=== PATIENT | male | born 1970 | race Caucasian/White ===

== ENCOUNTER 2023-02-24 17:13 | Emergency (ER) | payer OTHER ==
[~2023-02-24] VITALS: Ht 170.2 cm; Wt 80.0 kg
[2023-02-24] MEDS ORDERED: ONDANSETRON HCL 4MG/2ML INJ IV STA (17:26)
[2023-02-24] MEDS ORDERED: MORPHINE SULFATE 4 MG/ML CPJ (NOT FOR IM USE) IV STA (17:26)
[2023-02-24] MEDS ORDERED: LIDOCAINE HCL 1% 20ML VIAL (Pyxis) INJ INFIL ONE (17:30)
[2023-02-24] MEDS ORDERED: SODIUM CHLORIDE 0.9% 1,000 ML IV ONE (17:30)
[2023-02-24 17:46] VITALS: BP 126/90
[2023-02-24 18:03] LABS: BASOPHILS % 0.3 % (0.0-2.0); EOSINOPHILS % 1.1 % (0.0-5.0); HEMATOCRIT. 42.9 % (42.0-52.0); HEMOGLOBIN. 15.3 g/dL (14.0-18.0); LYMPHOCYTES % 20.1 % (20.0-50.0); MEAN CORPUSCULAR HEMOGLOBIN 32.9 pg (28.0-32.0); MEAN CORPUSCULAR VOLUME 92.3 fL (80.0-94.0); MEAN PLATELET VOLUME 8.2 fl (7.4-10.4); MONOCYTES % 5.9 % (2.0-8.0); NEUTROPHILS % 72.6 % (40.0-76.0); PLATELET 173 x1000/uL (130-400); RED BLOOD CELL COUNT 4.65 mill/uL (4.7-6.1); RED CELL DISTRIBUTION WIDTH 13.3 % (11.6-14.6)
[2023-02-24 18:10] LABS: CHLORIDE 107 mEq/L (98-107)
[2023-02-24 18:17] LABS: ETHANOL BLOOD < 10 mg/dL
[2023-02-24 18:33] LABS: INR 1.1; PROTHROMBIN TIME 11.3 sec (9.6-11.0)
[2023-02-24 22:25] LABS: CLARITY URINE CLEAR (CLEAR); COLOR URINE YELLOW (YELLOW); KETONES URINE NEGATIVE (NEGATIVE); LEUKOCYTE ESTERASE URINE NEGATIVE (NEGATIVE); NITRITE URINE NEGATIVE (NEGATIVE); OCCULT BLOOD URINE 3+ (NEGATIVE); PH URINE 6.5 (4.5-8.0); PROTEIN URINE NEGATIVE (NEGATIVE); SPECIFIC GRAVITY URINE 1.016 (1.005-1.030); UROBILINOGEN URINE 0.2 E.U./dL (0.2-1.0)
[2023-02-24 22:44] LABS: *AMPHETAMINES SCREEN URINE NEGATIVE (NEGATIVE); *BARBITURATES SCREEN URINE NEGATIVE (NEGATIVE); *BENZODIAZEPINES SCREEN URINE NEGATIVE (NEGATIVE); *COCAINE SCREEN URINE NEGATIVE (NEGATIVE); CANNABINOID URINE SCREEN NEGATIVE (NEGATIVE); METHADONE URINE SCREEN NEGATIVE (NEGATIVE); OPIATES URINE SCREEN NEGATIVE (NEGATIVE); PHENCYCLIDINE URINE SCREEN NEGATIVE (NEGATIVE)
== END 2023-02-24 23:23 | disposition home or self-care (01) ==
LOC: ER 17:13 → EDBEDREQ 22:05 → EDBEDREQTM 22:05 → ER 23:23
DX: R31.9 Hematuria, unspecified (principal); Z20.822 Contact with and (suspected) exposure to COVID-19
CPT/HCPCS: 36415; 76857; 80053; 80305; 80320; 81003; 83690; 85025; 85610; 87426; 93005; 96360; 99285; C9803; J3490; J7030; Z7610; A4315; G0480